=== PATIENT | male | born 1975 | race Caucasian/White ===

== ENCOUNTER 2020-11-11 00:20 | Observation (INO) | payer OTHER ==
[~2020-11-11] VITALS: Ht 175.3 cm; Wt 111.1 kg
[~2020-11-11 00:20] MED LIST: ATORVASTATIN CA20 MG PO; BRILINTA 90 MG90 MG PO; GLUCOPHAGE1000 MG PO; GLUCOTROL5 MG PO; LISINOPRIL20 MG PO; METFORMIN HCL1000 MG PO; NICOTINE PATCH1 EAC2 TD; NORFLEX 100 MG100 MG PO; NORVASC10 MG PO; PRINIVIL20 MG PO; Voltaren Gel 1 % TOP
[2020-11-11 01:29] LABS: RED BLOOD COUNT 5.84 M/UL (4.20-5.50); WHITE BLOOD COUNT 13.6 K/UL (4.5-11.0)
[2020-11-11 01:30] LABS: BUN/CREATININE RATIO 10 (0-10)
[2020-11-12 03:30] LABS: WHITE BLOOD COUNT 15.9 K/UL (4.5-11.0)
[2020-11-12 03:32] LABS: HEMOGLOBIN 14.4 gm/dl (14.0-17.5); RED BLOOD COUNT 5.06 M/UL (4.20-5.50)
[2020-11-12 03:48] LABS: BUN/CREATININE RATIO 18 (0-10)
[2020-11-12] MEDS ORDERED: LISINOPRIL10 MG PO (11:45)
[2020-11-12] MEDS ORDERED: ATENOLOL25 MG PO (11:45)
[2020-11-12] MEDS ORDERED: ZOCOR 40 MG TAB40 MG PO (11:45)
[2020-11-12] MEDS ORDERED: GLUCOPHAGE 500500 MG PO (11:45)
[2020-11-12] MEDS ORDERED: ASPIRIN EC81 MG PO (11:45)
[2020-11-12] MEDS ORDERED: LANTUS INS100 UTS/M1 SC (11:45)
[2020-11-12] MEDS ORDERED: IPRAT-ALBUT 0.5-3 ML NEB (11:45)
[2021-04-19] MEDS ORDERED: CARVEDILOL25 MG PO (15:04)
== END 2020-11-12 16:40 | disposition home or self-care (01) ==
LOC: ER1 00:20 → CDU 03:30 → MED SURG 4 03:30
PROVIDERS: Physician Assistant; ADMIT Internal Medicine
DX: R06.02 Shortness of breath (principal); R06.2 Wheezing; I10 Essential (primary) hypertension; E11.65 Type 2 diabetes mellitus with hyperglycemia; F17.210 Nicotine dependence, cigarettes, uncomplicated; E66.9 Obesity, unspecified; J40 Bronchitis, not specified as acute or chronic; I25.10 Atherosclerotic heart disease of native coronary artery without angina pectoris; I25.2 Old myocardial infarction; E78.5 Hyperlipidemia, unspecified; Z91.14 Patient's other noncompliance with medication regimen; Z20.822 Contact with and (suspected) exposure to COVID-19; Z82.49 Family history of ischemic heart disease and other diseases of the circulatory system; Z95.5 Presence of coronary angioplasty implant and graft; Z68.36 Body mass index [BMI] 36.0-36.9, adult
CPT/HCPCS: 0240U; 36415; 36600; 71045; 80048; 80053; 81001; 82550; 82553; 82803; 82962; 83036; 83605; 83735; 83880; 84100; 84484; 85025; 85379; 85610; 85652; 85730; 86140; 87040; 87086; 93005; 94640; 94664; 94760; 96374; 96376; 99285; G0378; J2920; J2930

== ENCOUNTER 2021-02-09 20:33 | Emergency (ER) | payer OTHER ==
[~2021-02-09 20:33] MED LIST changes: +ASPIRIN EC81 MG PO; +ATENOLOL25 MG PO; +GLUCOPHAGE 500500 MG PO; +IPRAT-ALBUT 0.5-3 ML NEB; +LANTUS INS100 UTS/M1 SC; +LISINOPRIL10 MG PO; +ZOCOR 40 MG TAB40 MG PO
[2021-02-09 23:06] LABS: HEMOGLOBIN 13.7 gm/dl (14.0-17.5); RED BLOOD COUNT 4.93 M/UL (4.20-5.50); WHITE BLOOD COUNT 9.1 K/UL (4.5-11.0)
[2021-02-09 23:37] LABS: BUN/CREATININE RATIO 16 (0-10)
[2021-02-10] MEDS ORDERED: LASIX20 MG PO (03:36)
[2021-04-19] MEDS ORDERED: CARVEDILOL25 MG PO (15:04)
== END 2021-02-10 03:53 | disposition home or self-care (01) ==
LOC: ER1 20:33
PROVIDERS: Student in an Organized Health Care Education/Training Program
DX: I11.0 Hypertensive heart disease with heart failure (principal); I50.1 Left ventricular failure, unspecified; J44.9 Chronic obstructive pulmonary disease, unspecified; E11.9 Type 2 diabetes mellitus without complications; F17.210 Nicotine dependence, cigarettes, uncomplicated; Z90.89 Acquired absence of other organs; Z20.822 Contact with and (suspected) exposure to COVID-19
CPT/HCPCS: 0240U; 71045; 80053; 82550; 82553; 83605; 83690; 83735; 83874; 83880; 84100; 84484; 85025; 85379; 93005; 94664; 96374; 99285; J1940; Q9967

== ENCOUNTER 2021-03-10 11:05 | Emergency (ER) | payer OTHER ==
[~2021-03-10 11:05] MED LIST changes: +LASIX20 MG PO
[2021-03-10 11:44] LABS: RED BLOOD COUNT 5.14 M/UL (4.20-5.50); WHITE BLOOD COUNT 10.4 K/UL (4.5-11.0)
[2021-03-10 12:16] LABS: BUN/CREATININE RATIO 15 (0-10)
[2021-04-19] MEDS ORDERED: CARVEDILOL25 MG PO (15:04)
== END 2021-03-10 15:49 | disposition home or self-care (01) ==
LOC: ER1 11:05
PROVIDERS: Emergency Medicine
DX: I11.0 Hypertensive heart disease with heart failure (principal); I50.9 Heart failure, unspecified; E11.9 Type 2 diabetes mellitus without complications; J44.9 Chronic obstructive pulmonary disease, unspecified; F17.200 Nicotine dependence, unspecified, uncomplicated; Z20.822 Contact with and (suspected) exposure to COVID-19
CPT/HCPCS: 0240U; 71045; 80053; 81001; 82550; 82553; 82962; 83605; 83690; 83880; 84484; 85025; 93005; 96374; 99284; J1940

== ENCOUNTER 2021-03-14 18:27 | Inpatient (IN) | payer OTHER ==
[~2021-03-14] VITALS: Ht 175.3 cm; Wt 100.7 kg
[2021-03-14 19:06] LABS: HEMOGLOBIN 13.8 gm/dl (14.0-17.5); RED BLOOD COUNT 5.11 M/UL (4.20-5.50); WHITE BLOOD COUNT 10.1 K/UL (4.5-11.0)
[2021-03-16 08:55] LABS: HEMOGLOBIN 14.7 gm/dl (14.0-17.5); RED BLOOD COUNT 5.44 M/UL (4.20-5.50); WHITE BLOOD COUNT 12.5 K/UL (4.5-11.0)
[2021-03-17 06:26] LABS: HEMOGLOBIN 13.9 gm/dl (14.0-17.5); RED BLOOD COUNT 5.08 M/UL (4.20-5.50); WHITE BLOOD COUNT 9.6 K/UL (4.5-11.0)
[2021-03-18 03:35] LABS: RED BLOOD COUNT 5.54 M/UL (4.20-5.50); WHITE BLOOD COUNT 8.7 K/UL (4.5-11.0)
[2021-03-18] MEDS ORDERED: GLUCOTROL XL 22.5 MG PO (13:41)
[2021-03-18] MEDS ORDERED: NITROGLYCERIN0.4 MG SL (13:41)
[2021-03-18] MEDS ORDERED: CARVEDILOL12.5 MG PO (13:41)
[2021-03-18] MEDS ORDERED: ISOSORBIDE MONO30 MG PO (13:41)
[2021-03-18] MEDS ORDERED: LANTUS INS100 UTS/M1 SC (13:41)
[2021-03-18] MEDS ORDERED: LASIX20 MG PO (13:41)
[2021-03-18] MEDS ORDERED: COZAAR 50MG TAB50 MG PO (13:41)
[2021-03-18] MEDS ORDERED: ALDACTONE 25MG25 MG PO (13:41)
[2021-04-19] MEDS ORDERED: CARVEDILOL25 MG PO (15:04)
== END 2021-03-18 14:07 | disposition home or self-care (01) | DRG 286 ==
LOC: ER1 18:27 → CDU 20:22 → MED SURG 4 03-15 07:36
PROVIDERS: Emergency Medicine; Internal Medicine Cardiovascular Disease; Physician Assistant; ADMIT Internal Medicine
PROC: B24BZZZ Ultrasonography of Heart with Aorta (ICD-10-PCS; 2021-03-16)
PROC: 4A023N7 Measurement of Cardiac Sampling and Pressure, Left Heart, Percutaneous Approach (ICD-10-PCS; principal; 2021-03-17)
PROC: B2111ZZ Fluoroscopy of Multiple Coronary Arteries using Low Osmolar Contrast (ICD-10-PCS; 2021-03-17)
DX: I13.0 Hypertensive heart and chronic kidney disease with heart failure and stage 1 through stage 4 chronic kidney disease, or unspecified chronic kidney disease (principal); I50.23 Acute on chronic systolic (congestive) heart failure; N17.9 Acute kidney failure, unspecified; N18.30 Chronic kidney disease, stage 3 unspecified; E66.01 Morbid (severe) obesity due to excess calories; F17.210 Nicotine dependence, cigarettes, uncomplicated; J44.9 Chronic obstructive pulmonary disease, unspecified; Z20.822 Contact with and (suspected) exposure to COVID-19; E11.65 Type 2 diabetes mellitus with hyperglycemia; I42.8 Other cardiomyopathies; E11.22 Type 2 diabetes mellitus with diabetic chronic kidney disease; E78.5 Hyperlipidemia, unspecified; I25.119 Atherosclerotic heart disease of native coronary artery with unspecified angina pectoris; Z79.4 Long term (current) use of insulin; Z90.49 Acquired absence of other specified parts of digestive tract; Z95.5 Presence of coronary angioplasty implant and graft; Z79.899 Other long term (current) drug therapy; Z91.14 Patient's other noncompliance with medication regimen; Z90.89 Acquired absence of other organs; Z98.890 Other specified postprocedural states; Z79.82 Long term (current) use of aspirin; Z82.49 Family history of ischemic heart disease and other diseases of the circulatory system; Z68.32 Body mass index [BMI] 32.0-32.9, adult
CPT/HCPCS: ECHO; 36415; 36600; 71045; 80048; 80053; 80061; 82550; 82553; 82803; 82962; 83036; 83690; 83735; 83874; 83880; 84100; 84484; 85025; 85027; 85610; 85730; 93005; 93306; 94640; 94664; 94760; 96372; 96374; 96376; 99152; 99285; C1769; C1894; G0378; J1644; J1650; J1940; J2250; J3010; Q9967; U0002

== ENCOUNTER 2021-04-19 10:40 | Observation (INO) | payer OTHER ==
[~2021-04-19] VITALS: Ht 175.3 cm; Wt 104.3 kg
[~2021-04-19 10:40] MED LIST changes: +ALDACTONE 25MG25 MG PO; +CARVEDILOL12.5 MG PO; +COZAAR 50MG TAB50 MG PO; +GLUCOTROL XL 22.5 MG PO; +ISOSORBIDE MONO30 MG PO; +NITROGLYCERIN0.4 MG SL
[2021-04-19 12:45] LABS: HEMOGLOBIN 14.6 gm/dl (14.0-17.5); RED BLOOD COUNT 5.44 M/UL (4.20-5.50); WHITE BLOOD COUNT 9.5 K/UL (4.5-11.0)
[2021-04-19 13:14] LABS: BUN/CREATININE RATIO 16 (0-10)
[2021-04-19] MEDS ORDERED: METFORMIN HCL1000 MG PO (15:02)
[2021-04-19] MEDS ORDERED: GLIPIZIDE XL10 MG PO (15:02)
[2021-04-19] MEDS ORDERED: TENORMIN 25 MG25 MG PO (15:04)
[2021-04-19] MEDS ORDERED: ZESTRIL20 MG PO (15:15)
[2021-04-19] MEDS ORDERED: CARVEDILOL25 MG PO (17:07)
[2021-04-20 03:13] LABS: HEMOGLOBIN 13.9 gm/dl (14.0-17.5); RED BLOOD COUNT 5.25 M/UL (4.20-5.50); WHITE BLOOD COUNT 9.2 K/UL (4.5-11.0)
[2021-05-24] MEDS ORDERED: TENORMIN 50 MG50 MG PO (12:52)
[2021-05-24] MEDS ORDERED: LISINOPRIL20 MG PO (12:53)
[2021-05-24] MEDS ORDERED: NITROSTAT0.4 MG SL (15:55)
[2021-05-24] MEDS ORDERED: IPRAT-ALBUT 0.5-3 ML NEB (17:05)
[2021-05-26] MEDS ORDERED: DIGOXIN125 MCG PO (11:48)
[2021-05-26] MEDS ORDERED: FUROSEMIDE20 MG PO (11:48)
== END 2021-04-20 15:12 | disposition home or self-care (01) ==
LOC: ER1 10:40 → CDU 13:49 → M/S 18:22
PROVIDERS: Physician Assistant; ADMIT Internal Medicine
DX: R07.89 Other chest pain (principal); I25.10 Atherosclerotic heart disease of native coronary artery without angina pectoris; I42.8 Other cardiomyopathies; J44.9 Chronic obstructive pulmonary disease, unspecified; I13.0 Hypertensive heart and chronic kidney disease with heart failure and stage 1 through stage 4 chronic kidney disease, or unspecified chronic kidney disease; E11.22 Type 2 diabetes mellitus with diabetic chronic kidney disease; N18.30 Chronic kidney disease, stage 3 unspecified; I50.22 Chronic systolic (congestive) heart failure; E78.5 Hyperlipidemia, unspecified; F17.210 Nicotine dependence, cigarettes, uncomplicated; E66.01 Morbid (severe) obesity due to excess calories; I16.0 Hypertensive urgency; I25.2 Old myocardial infarction; Z68.42 Body mass index [BMI] 45.0-49.9, adult; Z95.5 Presence of coronary angioplasty implant and graft; Z79.82 Long term (current) use of aspirin; Z79.4 Long term (current) use of insulin; Z79.899 Other long term (current) drug therapy; Z20.822 Contact with and (suspected) exposure to COVID-19
CPT/HCPCS: 36415; 71045; 80048; 80053; 82550; 82553; 82962; 83874; 84484; 85025; 93005; 94664; 94760; 96372; 99285; G0378; J1650; U0002

== ENCOUNTER 2021-05-03 03:39 | Emergency (ER) | payer OTHER ==
[~2021-05-03 03:39] MED LIST changes: +CARVEDILOL25 MG PO; +GLIPIZIDE XL10 MG PO; +TENORMIN 25 MG25 MG PO; +ZESTRIL20 MG PO
[2021-05-03 04:14] LABS: RED BLOOD COUNT 5.96 M/UL (4.20-5.50); WHITE BLOOD COUNT 9.5 K/UL (4.5-11.0)
[2021-05-03 04:45] LABS: BUN/CREATININE RATIO 18 (0-10)
[2021-05-24] MEDS ORDERED: TENORMIN 50 MG50 MG PO (12:52)
[2021-05-24] MEDS ORDERED: LISINOPRIL20 MG PO (12:53)
[2021-05-24] MEDS ORDERED: NITROSTAT0.4 MG SL (15:55)
[2021-05-24] MEDS ORDERED: IPRAT-ALBUT 0.5-3 ML NEB (17:05)
[2021-05-26] MEDS ORDERED: DIGOXIN125 MCG PO (11:48)
[2021-05-26] MEDS ORDERED: FUROSEMIDE20 MG PO (11:48)
== END 2021-05-03 06:53 | disposition home or self-care (01) ==
LOC: ER1 03:39
PROVIDERS: Emergency Medicine
DX: R07.89 Other chest pain (principal); I11.0 Hypertensive heart disease with heart failure; I50.9 Heart failure, unspecified; I25.2 Old myocardial infarction; E78.5 Hyperlipidemia, unspecified; E11.9 Type 2 diabetes mellitus without complications
CPT/HCPCS: 80053; 82550; 82553; 83874; 83880; 84484; 85025; 93005; 99285; Q9967

== ENCOUNTER 2021-05-08 21:36 | Emergency (ER) | payer OTHER ==
[2021-05-08 23:48] LABS: HEMOGLOBIN 14.8 gm/dl (14.0-17.5); RED BLOOD COUNT 5.55 M/UL (4.20-5.50); WHITE BLOOD COUNT 6.6 K/UL (4.5-11.0)
[2021-05-09 00:08] LABS: BUN/CREATININE RATIO 10 (0-10)
[2021-05-24] MEDS ORDERED: TENORMIN 50 MG50 MG PO (12:52)
[2021-05-24] MEDS ORDERED: LISINOPRIL20 MG PO (12:53)
[2021-05-24] MEDS ORDERED: NITROSTAT0.4 MG SL (15:55)
[2021-05-24] MEDS ORDERED: IPRAT-ALBUT 0.5-3 ML NEB (17:05)
[2021-05-26] MEDS ORDERED: DIGOXIN125 MCG PO (11:48)
[2021-05-26] MEDS ORDERED: FUROSEMIDE20 MG PO (11:48)
== END 2021-05-09 04:54 | disposition home or self-care (01) ==
LOC: ER1 21:36
PROVIDERS: Physician Assistant
DX: U07.1 COVID-19 (principal); I11.0 Hypertensive heart disease with heart failure; I50.9 Heart failure, unspecified; F17.210 Nicotine dependence, cigarettes, uncomplicated; Z95.1 Presence of aortocoronary bypass graft
CPT/HCPCS: 36600; 71045; 80053; 82550; 82553; 82803; 83605; 83874; 83880; 84484; 85025; 85379; 87040; 93005; 99285; Q9967; U0002

== ENCOUNTER → 2021-06-28 | Outpatient (CLI) | payer OTHER ==
[~2021-06-28] MED LIST changes: +DIGOXIN125 MCG PO; +FUROSEMIDE20 MG PO; +NITROSTAT0.4 MG SL; +TENORMIN 50 MG50 MG PO
== END ==
LOC: HEART 5 14:30
DX: I42.8 Other cardiomyopathies (principal); R94.39 Abnormal result of other cardiovascular function study; I34.0 Nonrheumatic mitral (valve) insufficiency; I51.7 Cardiomegaly
CPT/HCPCS: 93306

== ENCOUNTER 2021-10-08 16:21 | Inpatient (IN) | payer BC, OTHER ==
[~2021-10-08] VITALS: Ht 175.3 cm; Wt 101.3 kg
[~2021-10-08 16:21] MED LIST changes: -GLIPIZIDE XL10 MG PO; +GLIPIZIDE10 MG PO
[2021-10-08 17:35] LABS: HEMOGLOBIN 12.6 gm/dl (14.0-17.5); RED BLOOD COUNT 4.67 M/UL (4.20-5.50); WHITE BLOOD COUNT 7.3 K/UL (4.5-11.0)
[2021-10-08 17:57] LABS: BUN/CREATININE RATIO 18 (0-10)
[2021-10-09 02:28] LABS: HEMOGLOBIN 11.4 gm/dl (14.0-17.5); WHITE BLOOD COUNT 6.2 K/UL (4.5-11.0)
[2021-10-09 02:31] LABS: RED BLOOD COUNT 4.16 M/UL (4.20-5.50)
[2021-10-09 03:13] LABS: BUN/CREATININE RATIO 18 (0-10)
[2021-10-09] MEDS ORDERED: CLONIDINE HCL0.1 MG PO (10:58)
[2021-10-09] MEDS ORDERED: GAS RELIEF80 MG PO (10:59)
[2021-10-09] MEDS ORDERED: ATENOLOL50 MG PO (11:00)
[2021-10-09] MEDS ORDERED: FUROSEMIDE20 MG PO (11:01)
[2021-10-09] MEDS ORDERED: METFORMIN HCL1000 MG PO (11:02)
[2021-10-10 04:50] LABS: HEMOGLOBIN 12.6 gm/dl (14.0-17.5); RED BLOOD COUNT 4.57 M/UL (4.20-5.50)
[2021-10-10 05:16] LABS: BUN/CREATININE RATIO 20 (0-10)
[2021-10-11 04:04] LABS: RED BLOOD COUNT 4.35 M/UL (4.20-5.50); WHITE BLOOD COUNT 7.1 K/UL (4.5-11.0)
[2021-10-11 04:17] LABS: BUN/CREATININE RATIO 22 (0-10)
[2021-10-11] MEDS ORDERED: COZAAR 50MG TAB50 MG PO (12:24)
[2021-10-11] MEDS ORDERED: ATORVASTATIN CA20 MG PO (12:24)
[2021-10-11] MEDS ORDERED: BRILINTA 90 MG90 MG PO (12:24)
== END 2021-10-11 14:18 | DRG 247 ==
LOC: ER1 16:21 → PROG CARE 19:37 → CDU 19:37 → PROG CARE 10-09 15:55
PROVIDERS: Internal Medicine; Internal Medicine Cardiovascular Disease; Physician Assistant Medical; ADMIT Internal Medicine
PROC: 027034Z Dilation of Coronary Artery, One Artery with Drug-eluting Intraluminal Device, Percutaneous Approach (ICD-10-PCS; 2021-10-09)
PROC: 4A023N7 Measurement of Cardiac Sampling and Pressure, Left Heart, Percutaneous Approach (ICD-10-PCS; 2021-10-09)
PROC: B240ZZ3 Ultrasonography of Single Coronary Artery, Intravascular (ICD-10-PCS; 2021-10-09)
PROC: B2111ZZ Fluoroscopy of Multiple Coronary Arteries using Low Osmolar Contrast (ICD-10-PCS; 2021-10-09)
PROC: B24BZZZ Ultrasonography of Heart with Aorta (ICD-10-PCS; principal; 2021-10-10)
DX: I21.4 Non-ST elevation (NSTEMI) myocardial infarction (principal); I50.22 Chronic systolic (congestive) heart failure; Z20.822 Contact with and (suspected) exposure to COVID-19; I11.0 Hypertensive heart disease with heart failure; E11.9 Type 2 diabetes mellitus without complications; E78.5 Hyperlipidemia, unspecified; I25.5 Ischemic cardiomyopathy; R00.1 Bradycardia, unspecified; J44.9 Chronic obstructive pulmonary disease, unspecified; I25.10 Atherosclerotic heart disease of native coronary artery without angina pectoris; Z95.1 Presence of aortocoronary bypass graft; Z90.49 Acquired absence of other specified parts of digestive tract; Z87.891 Personal history of nicotine dependence; Z79.4 Long term (current) use of insulin; Z82.49 Family history of ischemic heart disease and other diseases of the circulatory system; Z98.890 Other specified postprocedural states; Z79.82 Long term (current) use of aspirin; Z79.899 Other long term (current) drug therapy
CPT/HCPCS: ECHO; 36415; 71045; 80048; 80053; 80061; 82550; 82553; 82962; 83036; 83540; 83550; 83605; 83735; 83874; 83880; 84100; 84484; 85025; 85027; 85347; 86140; 92978; 93005; 93306; 99152; 99153; 99285; C1725; C1753; C1760; C1769; C1874; C1887; C1894; C9600; J0360; J1644; J1650; J2250; J2370; J3010; J7040; Q9967; U0002

== ENCOUNTER → 2022-01-08 | Outpatient (CLI) | payer OTHER ==
[~2022-01-08] MED LIST changes: +ATENOLOL50 MG PO; +CLONIDINE HCL0.1 MG PO; +GAS RELIEF80 MG PO
== END ==
LOC: HEART 5 12-11 09:30
DX: I25.10 Atherosclerotic heart disease of native coronary artery without angina pectoris (principal); I42.8 Other cardiomyopathies
CPT/HCPCS: 93306

== ENCOUNTER → 2022-03-23 | Outpatient (CLI) | payer OTHER ==
[~2022-03-23] MED LIST changes: +CLEOCIN HCL300 MG PO; +HYDROCHLOROTHIA25 MG PO; +HYDROCODON-ACE1 EAC4 PO; +LEVOFLOXACIN750 MG PO; +LIPITOR40 MG PO; +LOSARTAN POTAS100 MG PO; +METOPROLOL SUC100 MG PO; +PLAVIX75 MG PO
[2022-03-23 11:32] LABS: HEMOGLOBIN 13.7 gm/dl (14.0-17.5); RED BLOOD COUNT 4.83 M/UL (4.20-5.50); WHITE BLOOD COUNT 7.9 K/UL (4.5-11.0)
[2022-03-23 11:55] LABS: BUN/CREATININE RATIO 16 (0-10)
== END ==
LOC: RAD 11:01
PROVIDERS: Internal Medicine
DX: I25.5 Ischemic cardiomyopathy (principal); I11.0 Hypertensive heart disease with heart failure; I50.22 Chronic systolic (congestive) heart failure
CPT/HCPCS: 36415; 71046; 80048; 85025

== ENCOUNTER → 2022-03-27 | Outpatient (CLI) | payer OTHER | LOC: CATH 08:24 | DX: I25.5 Ischemic cardiomyopathy (principal); I42.0 Dilated cardiomyopathy; I11.0 Hypertensive heart disease with heart failure; I50.22 Chronic systolic (congestive) heart failure; I25.10 Atherosclerotic heart disease of native coronary artery without angina pectoris; I25.2 Old myocardial infarction; E78.5 Hyperlipidemia, unspecified; E11.9 Type 2 diabetes mellitus without complications; Z95.5 Presence of coronary angioplasty implant and graft; Z87.891 Personal history of nicotine dependence; Z79.02 Long term (current) use of antithrombotics/antiplatelets; Z79.84 Long term (current) use of oral hypoglycemic drugs; Z79.899 Other long term (current) drug therapy | CPT/HCPCS: 33249; 71045; 82962; 93641; 99152; 99153; C1721; C1895; C1898; J1644; J2250; J3010; J3370; J7040; J7050; J7070 ==